=== PATIENT | male | born 1960 | race Hispanic/Latino ===

== ENCOUNTER 2016-12-27 14:05 | Inpatient (IN) | payer BC, MEDICAID, OTHER ==
[2016-12-27 15:30] LABS: HEMATOCRIT 46.3 % (35.0-51.0); MEAN CELL VOLUME 84.4 fl (80.0-94.0); MEAN CORPUSCULAR HEMOGLOBIN 28.8 pg (27.0-31.0); MEAN CORPUSCULAR HGB CONC 34.1 g/dL (33.0-37.0); RED CELL DISTRIBUTION WIDTH 14.1 % (11.5-14.5); WHITE BLOOD COUNT 14.6 K/uL (4.8-10.8)
[2016-12-27 15:42] LABS: RBC URINE < 1 /hpf (0-3); URINE BILIRUBIN NEGATIVE (NEGATIVE); URINE BLOOD NEGATIVE (NEGATIVE); URINE COLOR YELLOW (YELLOW); URINE GLUCOSE (UA) NEG (Normal); URINE KETONE NEGATIVE (NEGATIVE); URINE LEUKOCYTE ESTERASE NEG Leu/uL (Negative); URINE PROTEIN 30 mg/dL (NEGATIVE); URINE UROBILINOGEN 0.2-1.0 mg/dL (0.2-1.0); WBC URINE 1 /hpf (0-5)
[2016-12-27 15:51] LABS: ALB/GLOB RATIO 1.4 (1.0-2.1); ALCOHOL SERUM 249 mg/dl (0-10); ALKALINE PHOSPHATASE 76 U/L (38-126); ALT/SGPT 57 U/L (21-72); AST/SGOT 52 U/L (17-59); BILIRUBIN,TOTAL 1.1 mg/dl (0.2-1.3); BLOOD UREA NITROGEN 14 mg/dl (9-20); CALCIUM 10.7 mg/dL (8.4-10.2); CARBON DIOXIDE 30 mmol/L (22-30); CHLORIDE 92 mmol/L (98-107); GFR AFRICAN-AMERICAN > 60; GLUCOSE,RANDOM 120 mg/dL (75-110); POTASSIUM 3.1 MMOL/L (3.6-5.0); SODIUM 142 mmol/l (132-148); TOTAL PROTEIN 8.2 G/DL (6.3-8.2)
[2016-12-27] MEDS ORDERED: Potassium Chloride 10 mEq ER Tab PO ONE (15:54)
[2016-12-27] MEDS ORDERED: Alum-Mag Hydrox-Simethicone Susp (30 mL) PO STA (16:20)
[2016-12-27] MEDS ORDERED: Alum-Mag Hydrox-Simethicone Susp (30 mL) ONE (16:21)
[2016-12-27] MEDS ORDERED: Potassium Chloride 20 mEq ER Tab PO ONE (18:21)
--- NOTE | 2016-12-27 18:29 | ED PDOC ---
HPI: Psych/Substance Abuse Time Seen by Provider: 12/27/16 14:34 Chief Complaint (Nursing): Psychiatric Evaluation Chief Complaint (Provider): etoh Additional Complaint(s): 56yo M in ED for SI and intoxication-states that he drank 1 pint of tequila due to depression. admits to hx of depression, and alcohol abuse with attempts for detox. pt states he had thoughts of jumping out of a window, but stopped because he thought he wouldnt , rather only become paralyzed. Past Medical History Reviewed: Historical Data, Nursing Documentation, Vital Signs Vital Signs: Last Vital Signs Temp 99.0 F 12/27/16 14:21 Pulse 120 H 12/27/16 14:21 Resp 16 12/27/16 14:21 BP 129/79 12/27/16 14:21 Pulse Ox 95 12/27/16 14:21 - Medical History PMH: Anxiety, Asthma, Depression Denies: Chronic Kidney Disease - Family History Family History: States: No Known Family Hx - Home Medications Home Medications: Ambulatory Orders Medication Instructions Recorded Citalopram [celEXA] 40 mg PO DAILY #0 tab 01/19/16 Clindamycin [Cleocin] 300 mg PO Q8 #21 cap 01/19/16 Doxepin [Sinequan] 10 mg PO HS #30 cap 01/19/16 Naltrexone [Revia] 50 mg PO BID #60 tab 01/19/16 Naproxen 500 mg PO Q8 #30 tab 01/19/16 OXcarbazepine [Trileptal] 150 mg PO BID #60 tab 01/19/16 - Allergies Allergies/Adverse Reactions: Allergies Allergy/AdvReac Type Severity Reaction Status Date / Time Penicillins Allergy unknown Verified 01/15/16 19:19 Review of Systems ROS Statement: Except As Marked, All Systems Reviewed And Found Negative Psych: Positive for: Depression, Suicidal ideation Physical Exam - Reviewed Nursing Documentation Reviewed: Yes Vital Signs Reviewed: Yes - Physical Exam Appears: Positive for: No Acute Distress. Negative for: Well, Non-toxic ( intoxicated) Head Exam: Positive for: ATRAUMATIC, NORMAL INSPECTION, NORMOCEPHALIC Skin: Positive for: Normal Color, Warm, DRY Eye Exam: Positive for: EOMI, Normal appearance, PERRL ENT: Positive for: Normal ENT Inspection Cardiovascular/Chest: Positive for: Regular Rate, Rhythm Respiratory: Positive for: CNT, Normal Breath Sounds Neurologic/Psych: Positive for: Alert, Oriented, Mood/Affect (depression) - Laboratory Results Result Diagrams: 12/27/16 15:10 12/27/16 15:10 - ECG O2 Sat by Pulse Oximetry: 95 - Progress ED Course And Treament: pt intoxicated with SI, will place on 1:1 observe until clinically sober and have crisis eval. Pt became nauseous with abdominal pain the following were ordered. Orders Category Date Time Status ALCOHOL SERUM Stat Chem 12/27/16 15:10 Completed COMP METABOLIC PANEL Stat Chem 12/27/16 15:10 Completed DRUG SCREEN, URINE Stat Chem 12/27/16 15:30 Completed Crisis Evaluation As Ordered Cons 12/27/16 14:42 Ordered CBC Stat JAMES 12/27/16 15:10 Completed Aluminum Hydroxide/Magnesium [Maalox Plus 30 ml] Med 12/27/16 16:21 Discontinued 30 ml .ROUTE .STK-MED ONE Aluminum Hydroxide/Magnesium [Maalox Plus 30 ml] Med 12/27/16 16:20 Discontinued 30 ml PO STAT STA Ondansetron ODT [Zofran ODT] Med 12/27/16 18:20 Discontinued 4 mg .ROUTE .STK-MED ONE Ondansetron ODT [Zofran ODT] Med 12/27/16 18:03 Discontinued 4 mg PO STAT STA Potassium Chloride [K-Dur 20 mEq ER Tab] Med 12/27/16 18:21 Discontinued 20 meq PO .STK-MED ONE Potassium Chloride [Klor-Con 10] Med 12/27/16 15:54 Discontinued 10 meq PO ONCE ONE UA [URINALYSIS] Stat URINALYSIS 12/27/16 15:30 Completed Medical Decision Making Medical Decision Making: Pt will be admitted for depression under MD Chaitanya stable for admission. Disposition - Clinical Impression Clinical Impression: Substance abuse, Depression - Patient ED Disposition Is Patient to be Admitted: Yes - Disposition Disposition Time: 19:00 Condition: STABLE Forms: [facility] (Burmese) - Pt Status Changed To: Hospital Disposition Of: Inpatient - Admit Certification Admit to Inpatient:: After my assessment, the patient will require hospitalization for at least two midnights. This is because of the severity of symptoms shown, intensity of services needed, and/or the medical risk in this patient being treated as an outpatient. - POA Present On Arrival: None
[2016-12-27 20:38] VITALS: O2SAT 96
[2016-12-27] MEDS ORDERED: DiphenhydrAMINE 50 mg/ml Inj IM PRN (23:43)
[2016-12-27] MEDS ORDERED: Magnesium Hydroxide Susp 30 ml UD PO PRN (23:43)
--- NOTE | 2016-12-28 00:50 | PCM.BM ---
<Poornima Steele - Last Filed: 12/28/16 00:48> Treatment Plan Problems - Problems identified on initial assessmt Hopelessness/Helplessness Assessment reference: NA Status: Active Knowledge Deficit: Alcohol Use Assessment reference: NA Status: Active Treatment assets and liabiliti Patient Assests: ADL independent, physically healthy Patient Liabilities: substance abuse - Milieu Protocol Maintain good personal hygiene: daily Encourage regular showers, daily Remind patient to perform daily oral care, daily Assist patient to perform ADL's Maintain personal safety: every shift Educate patient to report safety concerns to staff, every shift Monitor environment for contraband/sharps Medication safety: Monitor for expected outcome, potential side effects: daily, every shift, Assess barriers to learning: daily, every shift, Assess readiness for medication education: daily, every shift <Elda You - Last Filed: 01/01/17 15:22> Treatment assets and liabiliti Patient Assests: adapts well, cooperative, motivated, resourceful, self-reliant , ADL independent, physically healthy, good support system, negotiates basic needs, good past tx response, cognitively intact, good interpersonal skills Patient Liabilities: live alone, substance abuse Family Contact Family contact: Patient agrees to contact, Family has been contacted by patient , Telephone contact initiated by staff Family contact name: Nicole(sister)([phone]) Family contacted how many times per week?: 1 Family contact comment: [employer] placed call to patients sister prior to discharge to discuss progress on 3NP, discharge and aftercare. [employer] provided clinical updates and emphasized importance of compliance with aftercare to reduce risk of future hospitalizations. Patients sister expressed understanding of the above and denied any concerns regarding patients d/c or return home. - Outside Agency Agency 1 Care involvment: Other Agency contact name: [facility] Agency contact number: [phone] Agency 2 Care involvment: Other (Patient agreeable to Eliane Carrizales referral) Agency contact name: [facility] Agency contact number: [phone] - Goals for Treatment Patient goals for treatment: Patient to continue stabilization on 3NP through medication management and group/supportive therapy. Patient to be encouraged to attend groups regularly to promote self-awareness, sobriety, and improve insight , coping skills and self-esteem. Patient to be provided with referral for appropriate level of aftercare to reduce risk of future hospitalizations and ensure safety in the community. Discharge/Continuing Care - Education Needs Education Needs: Patient Medication, Patient Coping Skills, Patient Community resources, Patient Aftercare Safety Plan - Discharge Discharge Criteria: Tolerates medication w/o severe side effects, Free of Suicidal thoughts, Normal sleep pattern, Ability to care for self, No longer exhibiting s/s of withdrawal, Reduction of target symptoms Discharge to:: Home - Treatment Team Participation Patient/Family/SO Statement: 01/01/17 15:20 Patient attended treatment team this morning and was able to appropriately participate in discussion regarding progress on 3NP and aftercare. Patient cooperative, pleasant and visible on 3NP. Patient observed socializing with select peers. Patient reported significant improvement in symptoms of depression since admission and denied SI. Patient expressed motivation towards compliance with aftercare and sobriety. Patient discharged home shortly after tx team Discussed with Family/SO: Yes Was Patient/Family/SO present at Treatment Team Meeting: Yes
--- NOTE | 2016-12-28 08:21 | CARD ---
APPROVED REPORT EKG Measurement Heart [id number] <Conclusion> Sinus tachycardia Otherwise normal ECG
[2016-12-28] MEDS: Multivitamin With Minerals Tab PO SCH (08:53)
[2016-12-28 09:15] LABS: T4 7.75 ug/dl (5.5-11.0)
[2016-12-28 09:28] LABS: THYROID STIMULATING HORMONE 2.4 mIU/ML (0.46-4.68)
--- NOTE | 2016-12-28 11:16 | RAD ---
HISTORY: medical exam COMPARISON: 01/16/2016. FINDINGS: LUNGS: The lungs are well inflated and clear. PLEURA: No significant pleural effusion identified, no pneumothorax apparent. CARDIOVASCULAR: Normal. OSSEOUS STRUCTURES: No significant abnormalities. VISUALIZED UPPER ABDOMEN: Normal. OTHER FINDINGS: None. IMPRESSION: No active pulmonary disease.
[2016-12-28] MEDS: Alum-Mag Hydrox-Simethicone Susp (30 mL) PO PRN ×2 (12:16→20:51)
--- NOTE | 2016-12-28 15:32 | PCM.PSYCH ---
Initial Psychiatric Evaluation - Initial Psychiatric Evaluation Type of Admission: Voluntary Chief Complaint (in patient's own words): i am lonely so i started drinking Patient's Reaction to Hospitalization: patient requested admission for stabilization History of Present Illness and Precipitating Events: 56 yo male with . history of depression and alcohol dependence. pt non compliant with mediccation or follow up states he did well after completing a rehab program, but again started drinking in december around his birthday. he has been drinking almost a liter a day of tequila. he reports he had become more depressed and had trouble sleeping at night. relates his depression.to feeling lonely having no or children he feels ashamed and guilty because of his drinking. he reports that he started experiencing suicidal ideations with plan to jump off the bridge so he came to ER seeking help he reports he is currently working and does not feel he needs inpt rehab. he states he needs help for his anxiety/depression. . denies any manic or psychotic symptoms. Current Medications: Active Medications Generic Name Dose Route Start Last Admin Trade Name Leanne PRN Reason Stop Dose Admin Acetaminophen 650 mg 12/27/16 23:43 Tylenol 325mg Tab PO Q4 PRN Pain, moderate (4-7) Al Hydrox/Mg Hydrox/Simethicone 30 ml 12/27/16 23:43 12/28/16 12:16 Maalox Plus 30 Ml PO 30 ml Q4 PRN Administration Dyspepsia Bupropion HCl 75 mg 12/28/16 15:15 Wellbutrin PO DAILY MALA Diphenhydramine HCl 50 mg 12/27/16 23:43 Benadryl IM Q6 PRN Extrapyramidal S/S Unable PO Diphenhydramine HCl 50 mg 12/27/16 23:43 Benadryl PO Q6 PRN Extrapyramidal Symptoms Folic Acid 1 mg 12/28/16 09:00 12/28/16 08:53 Folic Acid PO 1 mg DAILY MALA Administration Gabapentin 100 mg 12/28/16 09:00 12/28/16 12:15 Neurontin PO 100 mg TID MALA Administration Haloperidol 5 mg 12/27/16 23:43 Haldol PO Q4 PRN Agitation Haloperidol Lactate 5 mg 12/27/16 23:43 Haldol IM Q4 PRN Agitation, Unable to Take PO Lorazepam 2 mg 12/27/16 23:43 Ativan IM Q4 PRN Anxiety/Agitation,Unable PO Lorazepam 2 mg 12/27/16 23:43 12/28/16 00:35 Ativan PO 2 mg Q4 PRN Administration Anxiety/Agitation Magnesium Hydroxide 30 ml 12/27/16 23:43 Milk Of Magnesia PO HS PRN Constipation Multivitamins/Minerals 1 tab 12/28/16 09:00 12/28/16 08:53 Therapeutic-M Tab PO 1 tab DAILY MALA Administration Thiamine HCl 100 mg 12/28/16 09:00 12/28/16 08:53 Vitamin B1 Tab PO 100 mg DAILY MALA Administration Past Psychiatric History - Past Psychiatric History Explanation of prior treatment: patient has history of at least two inpatient hospitalizations and rehab inpatient history of non compliance with medication and follow up history of one previous suicidal attaempt by cutting the wrist History of Abuse: denied History of ETOH/Drug Use: patient has long history of alcohol abuse , and two inpatient rehab Pertinent Medical Hx (Current Medical&Sleep Prob, Allergies): Allergies Allergy/AdvReac Type Severity Reaction Status Date / Time Penicillins Allergy unknown Verified 01/15/16 19:19 Citalopram [celEXA] 40 mg PO DAILY #0 tab 01/19/16 Clindamycin [Cleocin] 300 mg PO Q8 #21 cap 01/19/16 Doxepin [Sinequan] 10 mg PO HS #30 cap 01/19/16 Naltrexone [Revia] 50 mg PO BID #60 tab 01/19/16 Naproxen 500 mg PO Q8 #30 tab 01/19/16 OXcarbazepine [Trileptal] 150 mg PO BID #60 tab 01/19/16 Mental Status Examination - Personal Presentation Personal Presentation: Looks stated age - Affect Affect: Constricted, Depressed - Motor Activity Motor Activity: Calm - Reliability in Providing Information Reliability in Providing Information: Fair - Speech Speech: Organized - Mood Mood: Depressed, Anxious - Formal Thought Process Formal Thought Process: No Impairment - Hallucinations/Delusions Additional comments: patient denied any current perceptual disturbances non elicited - Obsessions/Compulsions Obsessions: No Compulsions: No - Cognitive Functions Orientation: Person, Place Sensorium: Alert Attention/Concentration: Attentive Abstract Thinking: Crozier Judgement: Imparied, as evidence by: Poor judgement Memory: Recent intact, as evidence by: Ability to recall events of the day - Risk Risk: Withdrawal, Diminished functioning - Strength & Assets Inventory Strength & Assets Inventory: Employment history - Limitations Additional comments: poor social support DSM 5 DX - DSM 5 DSM 5 Diagnosis: major depression alcohol induced mood disorder alcohol use disorder - Recommended/Plan of Treatment Treatment Recommendations and Plan of Treatment: start patient on alcohol withdrawal protocol and monitor for symptoms and signs of alcohol withdrawal neurontin 100mg tid for anxiety wellbutrin 75 mg group therapy and motivational interviewing Prognosis: guarded
[2016-12-29] MEDS: Multivitamin With Minerals Tab PO SCH (08:48)
[2016-12-29] MEDS: Pantoprazole 40 mg EC Tab PO SCH (08:48)
--- NOTE | 2016-12-29 11:39 | PCM.PYCHPN ---
Psychiatric Progress Note - Psychiatric Progress Note Patient seen today, length of contact: pt evaluated discussed with team chart reviewed Patient Chief Complaint: i still feel very depressed and shaky Problems Identified/Issues Discussed: patient continues to feel very anxious, also reported feeling depressed worried about loosing his job because of the alcohol also feeling lonely having no family, denied any current suicidal ideations denied psychotic symptoms DSM 5 Symptoms Update: major depression alcohol use disorder Medication Change: Yes (increase wellbutrin and neurontin) Medical Record Reviewed: Yes Mental Status Examination - Cognitive Function Orientation: Person, Place Memory: Intact Attention: WNL Concentration: WNL Association: [facility] Fund of Knowledge: [facility] Decription of patient's judgement and insights: fair insight and poor judgment - Mood Mood: Depressed, Anxious - Affect Affect: Constricted, Depressed - Speech Speech: Appropriate - Formal Thought Process Formal Thought Process: No Impairment Psychotic Thoughts and Behaviors: pt denied perseptual disturbances, non elicited - Suicidal Ideation Suicidal Ideation: No - Homicidal Ideation Homicidal Ideation: No Goal/Treatment Plan - Goal/Treatment Plan Need for Continued Stay: Severe depression anxiety, Discharge may exacerbated symptoms Progress Toward Problem(s) and Goals/Treatment Plan: continue with alcohol withdrawal protocol and monitor for symptoms and signs of alcohol withdrawal increase neurontin 200mg tid for anxiety increase wellbutrin 150 mg group therapy and motivational interviewing
[2016-12-30] MEDS: buPROPion SR 150 MG TABLET PO SCH (08:49)
[2016-12-30] MEDS: Multivitamin With Minerals Tab PO SCH (08:49)
--- NOTE | 2016-12-30 14:05 | PCM.PYCHPN ---
Psychiatric Progress Note - Psychiatric Progress Note Patient seen today, length of contact: pt evaluated discussed with team chart reviewed Patient Chief Complaint: I AM A LITTLE BETTER THAN YESTERDAY Problems Identified/Issues Discussed: patient continues reported to feel less very anxious, also reported feeling less depressed , no reported side effects of current medication , denied any current suicidal ideations denied psychotic symptoms DSM 5 Symptoms Update: major depression recurrent Medication Change: No Medical Record Reviewed: Yes Mental Status Examination - Cognitive Function Orientation: Person, Place Memory: Intact Attention: WNL Concentration: WNL Association: WNL Fund of Knowledge: [facility] Decription of patient's judgement and insights: fair insight and poor judgment - Mood Mood: Depressed, Anxious - Affect Affect: Constricted, Depressed - Speech Speech: Appropriate - Formal Thought Process Formal Thought Process: No Impairment Psychotic Thoughts and Behaviors: pt denied perseptual disturbances, non elicited - Suicidal Ideation Suicidal Ideation: No - Homicidal Ideation Homicidal Ideation: No Goal/Treatment Plan - Goal/Treatment Plan Need for Continued Stay: Severe depression anxiety, Discharge may exacerbated symptoms Progress Toward Problem(s) and Goals/Treatment Plan: continue with neurontin 200mg tid for anxiety and wellbutrin 150 mg, uptitrate gradually for partial response monitor patient for psychopharmacological effects and side effect profile group therapy and motivational interviewing
[2016-12-30] MEDS: Pantoprazole 40 mg EC Tab PO SCH (16:59)
[2016-12-31] MEDS: Multivitamin With Minerals Tab PO SCH (08:41)
[2016-12-31] MEDS: buPROPion SR 150 MG TABLET PO SCH (08:41)
[2016-12-31] MEDS: Pantoprazole 40 mg EC Tab PO SCH (08:42)
--- NOTE | 2016-12-31 12:36 | PCM.PYCHPN ---
Psychiatric Progress Note - Psychiatric Progress Note Patient seen today, length of contact: pt evaluated discussed with team chart reviewed Patient Chief Complaint: My sister is helping me and that is good Problems Identified/Issues Discussed: patient reported feeling less anxious, and less depressed , stated feeling encouraged due to the social support from his sisters who live near him no reported side effects of current medication denied any current suicidal ideations denied psychotic symptoms attending groups DSM 5 Symptoms Update: major depression recurrent alcohol induced mood disorder with depressive features alcohol use disorder Medication Change: No Medical Record Reviewed: Yes Mental Status Examination - Cognitive Function Orientation: Person, Place Memory: Intact Attention: WNL Concentration: WNL Association: WN Fund of Knowledge: [facility] Decription of patient's judgement and insights: fair insight and poor judgment - Mood Mood: Anxious - Affect Affect: Constricted - Speech Speech: Appropriate - Formal Thought Process Formal Thought Process: No Impairment Psychotic Thoughts and Behaviors: pt denied perseptual disturbances, non elicited - Suicidal Ideation Suicidal Ideation: No - Homicidal Ideation Homicidal Ideation: No Goal/Treatment Plan - Goal/Treatment Plan Need for Continued Stay: Discharge may exacerbated symptoms Progress Toward Problem(s) and Goals/Treatment Plan: continue with neurontin 200mg tid for anxiety and wellbutrin 150 mg, monitor patient for psychopharmacological effects and side effect profile CBT group therapy and motivational interviewing Estimated Date of D/C: 01/01/17
[2017-01-01] MEDS: Multivitamin With Minerals Tab PO SCH (09:04)
[2017-01-01] MEDS: Pantoprazole 40 mg EC Tab PO SCH (09:04)
[2017-01-01] MEDS: buPROPion SR 150 MG TABLET PO SCH (09:04)
[2017-01-01 09:09] VITALS: BP 124/74; PULSE 100; RESP 20; TEMP 97.5
--- NOTE | 2017-01-01 14:15 | PCM.PYCHDC ---
Mental Status Examination - Mental Status Examination Orientation: Person, Place, Situation, Time Mood: Neutral Affect: Broad Speech: Appropriate Attention: WNL Concentration: WNL Association: WNL Fund of Knowledge: WNL Formal Thought Process: No Impairment Description of patient's judgement and insight: fair insight and good judgment Psychotic Thoughts and Behaviors: pt denied perseptual disturbances, non elicited Suicidal Ideation: No Current Homicidal Ideation?: No Discharge Summary - Discharge Note Reason for Hospitalization: patient requested admission for stabilization 56 yo male with . history of depression and alcohol dependence. pt non compliant with mediccation or follow up states he did well after completing a rehab program, but again started drinking in december around his birthday. he has been drinking almost a liter a day of tequila. he reports he had become more depressed and had trouble sleeping at night. relates his depression.to feeling lonely having no or children he feels ashamed and guilty because of his drinking. he reports that he started experiencing suicidal ideations with plan to jump off the bridge so he came to ER seeking help he reports he is currently working and does not feel he needs inpt rehab. he states he needs help for his anxiety/depression. . denies any manic or psychotic symptoms. Consultations:: List each consultation separately and include: 1. Reason for request. 2. Findings. 3. Follow-up Summary of Hospital Course include:: 1. Description of specific treatment plan utilized for patients during their course of treatmen. 2. Summarize the time- course for resolution of acute symptoms and/or regressed behaviors. 3. Describe issues identified and worked on during hospitalization. 4. Describe medication utilized. 5. Describe medical problems identified and treated. 6. Reassessment of suicide risk Summary of Hospital Course: pt on admission was started on alcohol withdrawal protocol wellbutrin as an antidepressant was uptitrated gradually neurontin was started for anxiety no reported side effects of medication attended groups cbt and group therapy provided pt on discharge , mental status was stable, denied suicidal or homicidal ideations - Diagnosis (1) Depression Current Visit: Yes Status: Acute Priority: High Comment: - as per psyhiatric management - Final Diagnosis (DSM 5) Condition upon Discharge: STABLE Disposition: HOME/ ROUTINE Follow-up Treatment Plan: outpatient Prescriptions/Medication Reconciliation: buPROPion SR [Wellbutrin SR 150 MG] 150 mg PO DAILY 30 Days #30 tab Gabapentin [Neurontin] 200 mg PO TID 30 Days #90 cap - Antipsychotic Medications Pt discharged on 2 or more routine antipsychotic medications: No
== END 2017-01-01 11:45 | disposition home or self-care (01) | DRG 881 ==
LOC: H.ER 14:05 → H.ERHOLD 19:01 → H.PSYCH 22:15
PROVIDERS: ADMIT Psychiatry & Neurology Psychiatry; ATTEND Psychiatry & Neurology Psychiatry
PROC: GZHZZZZ Group Psychotherapy (ICD-10-PCS; principal; 2016-12-27)
DX: F32.9 Major depressive disorder, single episode, unspecified (principal); R45.851 Suicidal ideations; Z91.14 Patient's other noncompliance with medication regimen; Z91.19 Patient's noncompliance with other medical treatment and regimen; F41.9 Anxiety disorder, unspecified; J45.909 Unspecified asthma, uncomplicated; F10.229 Alcohol dependence with intoxication, unspecified; Y90.8 Blood alcohol level of 240 mg/100 ml or more